=== PATIENT | female | born 1930 | race Caucasian/White ===

== ENCOUNTER 2018-04-13 12:20 | Inpatient (IN) ==
[2018-04-13 14:00] LABS: Baso # (Auto) 0.3 th/mm3 (0.0-0.2); Baso % (Auto) 3.5 % (0.0-2.0); Eos # (Auto) 0.1 th/mm3 (0.0-0.4); Eos % (Auto) 1.4 % (0.0-4.0); Hematocrit 22.7 % (35.0-46.0); Hemoglobin 7.3 gm/dL (11.6-15.3); Lymph # (Auto) 1.4 th/mm3 (1.0-4.8); Lymph % (Auto) 14.4 % (9.0-44.0); Mean Corpuscular HGB Conc 32.4 % (32.0-36.0); Mean Corpuscular Hemoglobin 30.3 pg (27.0-34.0); Mean Corpuscular Volume 93.6 fL (80.0-100.0); Mean Platelet Volume 6.7 fL (7.0-11.0); Mono # (Auto) 0.9 th/mm3 (0.0-0.9); Mono % (Auto) 9.4 % (0.0-8.0); Neut # (Auto) 6.9 th/mm3 (1.8-7.7); Neut % (Auto) 71.3 % (16.0-70.0); Platelet Count 515 th/mm3 (150-450); Red Blood Count 2.42 mil/mm3 (4.00-5.30); Red Cell Distribution Width 17.8 % (11.6-17.2); White Blood Count 9.6 th/mm3 (4.0-11.0)
--- NOTE | 2018-04-13 14:00 | ED ---
HPI General Chief complaint: Recheck/Abnormal Lab/Rx Stated complaint: Neck pain/Home Health Nurse sent needs Vitamin K s Time Seen by Provider: 04/13/18 13:26 Source: patient and RN notes reviewed Mode of arrival: ambulatory History of Present Illness HPI narrative: 87yF presenting with left flank bruising and elevated INR. The patient states that she had a left hip replacement performed about a month ago by Dr. Marrero in [place]; she had no acute complications following her procedure. She says that her home health aide noted bruising to her left flank/ above her iliac crest 4 days ago, and when she had her INR checked today it was found to be 5.4 so she was told to come to the ED. She denies trauma, fever or chills, nausea or vomiting, black/ tarry/ bloody stools, or dysuria. No recent changes in coumadin dose. She takes coumadin for history of A fib. Related Data Home Medications Medication Instructions Recorded Confirmed Lactobacillus acidoph-L.bulgar 1 tab PO DAILY 03/24/18 04/13/18 [Lactinex] ascorbic acid (vitamin C) [Vitamin 1 g PO DAILY 03/24/18 04/13/18 C] atenolol 25 mg PO BID 03/24/18 04/13/18 biotin 1,000 mcg PO DAILY 03/24/18 04/13/18 citalopram 10 mg PO DAILY 03/24/18 04/13/18 coenzyme Q10 200 mg PO DAILY 03/24/18 04/13/18 docusate sodium [DOK] 100 mg PO Q12HR 03/24/18 04/13/18 gabapentin 300 mg PO HS 03/24/18 04/13/18 levothyroxine 88 mcg PO DIRECTED 03/24/18 04/13/18 lisinopril 20 mg PO DAILY 03/24/18 04/13/18 multivitamin with minerals 1 tab PO DAILY 03/24/18 04/13/18 [Multiple Vitamin-Minerals] pravastatin 80 mg PO DAILY 03/24/18 04/13/18 vitamin B complex 1 tab PO DAILY 03/24/18 04/13/18 warfarin 5 mg PO DAILY 03/24/18 04/13/18 zolpidem 5 mg PO DAILY 03/24/18 04/13/18 Previous Rx's Medication Instructions Recorded B-complex with vitamin C [Total 1 tab PO DAILY 30 Days #30 tab 03/30/18 B/C] acidophilus-sporogenes 1 tab PO DAILY 30 Days #30 tab 03/30/18 [Acidophilus Ex Str (L. sporog)] ascorbic acid (vitamin C) [Vitamin 1,000 mg PO DAILY 30 Days #60 tab 03/30/18 C] atenolol 25 mg PO BID 30 Days #60 tab 03/30/18 citalopram 10 mg PO DAILY 30 Days #15 tab 03/30/18 gabapentin [Neurontin] 300 mg PO HS 30 Days #30 cap 03/30/18 levothyroxine [Synthroid] 88 mcg PO MoTuWeThFrSa@0600 30 03/30/18 Days tab lisinopril 10 mg PO DAILY 30 Days #30 tab 03/30/18 ounuvmyg-godi-CO-calcium-mins 1 tab PO DAILY 30 Days #30 tab 03/30/18 [Thera M Plus (ferrous fumarat)] pantoprazole 40 mg PO DAILY 30 Days #30 tab 03/30/18 pravastatin 80 mg PO DAILY 30 Days #30 tab 03/30/18 sennosides-docusate sodium [Senna 1 tab PO BID 30 Days #60 tab 03/30/18 Plus] tramadol [Ultram] 50 mg PO Q8H PRN #21 tab 03/30/18 warfarin [Coumadin] 5 mg PO DAILY@1600 30 Days tab 03/30/18 Allergies Allergy/AdvReac Type Severity Reaction Status Date / Time hydrocodone Allergy Severe Confusion Verified 03/25/18 06:11 nitroglycerin Allergy Severe Dizziness Verified 03/25/18 06:11 oxycodone Allergy Severe confusion Verified 03/25/18 06:11 rosuvastatin Allergy Severe paralysis Verified 03/25/18 06:11 epinephrine AdvReac Severe TACHYCARDIA, Verified 03/25/18 07:08 FACIAL FLUSHING, SIMULATES "HEART ATTACK' Review of Systems ROS: all other systems reviewed are negative Constitutional Denies fever(s) Eyes Denies blurry vision ENT Denies nasal congestion Cardiovascular Denies chest pain Respiratory Denies cough Gastrointestinal Denies nausea Genitourinary Denies dysuria Musculoskeletal Denies back pain Integumentary/Breasts Reports unusual bruising PMFSH History History Provided By: Patient Medical History Medical History Basal cell carcinoma of nose (Acute) Cataract, bilateral (Acute) CAD (coronary artery disease) (Acute) Hypertension (Acute) Surgical History Surgical History S/P lumpectomy, right breast (Acute) History of carpal tunnel release (Acute) Stented coronary artery (Acute) History of nephrectomy (Acute) Hx of tonsillectomy (Acute) History of total right knee replacement (Acute) History of total left knee replacement (Acute) Family History Family History Sister Family history of cancer Father Family history of hypertension Mother Family history of hypertension Social History Social History Substance History: No History of Abuse Second Hand Smoke Exposure: No Smoking Status: Never smoker Tobacco Type: Cigarettes How Often Do You Have a Drink Containing Alcohol: 2 to 3 times a week Hx Recent Travel: No Recent Travel in [facility] within the Last 8 Weeks: No Recent Out of Country Travel within the Last 8 Weeks: No Immunization History Tetanus Immunization: >5 Years Hx Influenza Vaccine This Season: Yes Exam Const General: healthy appearing and no acute distress [facility] Head: normocephalic and atraumatic Face and sinus: normal facial exam Eyes General: appearance normal, both eyes and all related structures Pupils: PERRL Chest Chest: normal inspection of the chest Resp Effort & Inspection: normal respiratory effort Auscultation: no rhonchi and no wheezes Cardio Rate: regular rate Rhythm: abnormal rhythm GI Inspection: non-distended Palpation: soft and nontender Skin Other: Dark blue/ purple ecchymosis to left lower flank just above iliac crest Non-tender Normal ROM of left hip, no tenderness to iliac crest, no midline lumbar tenderness Neuro General: alert, awake, oriented x3 and no focal motor deficits Psych Affect: normal affect Course Consultations Consultation #1: Call placed to Dr. Martinez of [facility] (patient's orthopedist); she has a psoas hematoma and anterior hip collection, INR of 4, and has acutely dropped her hemoglobin from 9.7 to 7.3. Awaiting call back. Time: 15:10 Consultation #2: Case discussed with Dr. Villarreal (converter operator for Dr. Martinez's group), who says the CT findings are expected in the setting of supratherapeutic INR. He does not feel that the patient requires transfer to [facility], and says that aside from reversing the INR, he does not recommend any specific orthopedic intervention. Time: 15:20 Initial Documented Vital Signs Temperature 97.8 F 04/13/18 12:49 Pulse Rate 67 04/13/18 12:49 Respiratory Rate 16 04/13/18 12:49 Blood Pressure 142/71 H 04/13/18 12:49 Pulse Oximetry 97 04/13/18 12:49 Last Documented Vital Signs Temperature 97.8 F 04/13/18 12:49 Pulse Rate 67 04/13/18 12:49 Respiratory Rate 16 04/13/18 12:49 Blood Pressure 142/71 H 04/13/18 12:49 Pulse Oximetry 97 04/13/18 12:49 Medical Decision Making [facility] Narrative Medical decision making narrative: Assessment: 87yF presenting with left flank bruising and elevated INR Plan: Labs, including INR and CBC CT abd/ pelvis to r/o retroperitoneal bleed Addendum: Patient found to have left psoas hematoma and anterior hip effusion/ hematoma, INR of 4, and acute drop in Hg from 2 weeks ago. Case discussed with Dr. Macedo [facility], who would like the patient transferred to [facility] as we do not have orthopedics available here. She will also need intermediate level of care and telemetry monitoring. I informed the patient of these results and plan; she understands and agrees. Differential Diagnosis Differential Diagnosis: Differential diagnosis includes, but is not limited to: supratherapeutic INR, retroperitoneal hematoma, rib fracture, contusion Medical Records Medical records reviewed: Yes I reviewed the patient's medical records. Lab Data Lab results reviewed: Yes I reviewed the patient's lab results. Result diagrams: 04/13/18 13:55 04/13/18 13:55 Lab Results 04/13/18 04/13/18 04/13/18 Range/Units 13:55 13:55 13:55 CBC w Diff Auto diff final WBC 9.6 (4.0-11.0) th/mm3 RBC 2.42 L (4.00-5.30) mil/mm3 Hgb 7.3 L (11.6-15.3) gm/dL Hct 22.7 L (35.0-46.0) % MCV 93.6 (80.0-100.0) fL MCH 30.3 (27.0-34.0) pg MCHC 32.4 (32.0-36.0) % RDW 17.8 H (11.6-17.2) % Plt Count 515 H (150-450) th/mm3 MPV 6.7 L (7.0-11.0) fL Neut % (Auto) 71.3 H (16.0-70.0) % Lymph % (Auto) 14.4 (9.0-44.0) % [place]on % (Auto) 9.4 H (0.0-8.0) % Eos % (Auto) 1.4 (0.0-4.0) % Baso % (Auto) 3.5 H (0.0-2.0) % Neut # (Auto) 6.9 (1.8-7.7) th/mm3 Lymph # (Auto) 1.4 (1.0-4.8) th/mm3 [place]on # (Auto) 0.9 (0.0-0.9) th/mm3 Eos # (Auto) 0.1 (0.0-0.4) th/mm3 Baso # (Auto) 0.3 H (0.0-0.2) th/mm3 WBC Differential . Differential Comment . PT 42.3 H D (9.8-11.6) sec INR 4.2 Ratio Sodium 135 L (136-145) meq/L Potassium 4.3 (3.5-5.1) meq/L Chloride 100 (98-107) meq/L Carbon Dioxide 29.2 (21.0-32.0) meq/L Anion Gap 6 (5-15) meq/L BUN 17 (7-18) mg/dL Creatinine 0.69 (0.50-1.00) mg/dL Estimated GFR 81 L (>89) mL/min Random Glucose 107 H (74-106) mg/dL Calcium 7.8 L (8.5-10.1) mg/dL Total Bilirubin 0.6 (0.2-1.0) mg/dL AST 33 (15-37) U/L ALT 36 (10-53) U/L Alkaline Phosphatase 193 H (45-117) U/L Total Protein 6.2 L (6.4-8.2) g/dL Albumin 2.6 L (3.4-5.0) g/dL Imaging Data Radiologist's impression: Abdomen/Pelvis CT 04/13/18 13:34 CONCLUSION: 1. Left psoas enlargement characteristic of a muscular hematoma 2. Large mixed density fluid collection anterior to a recently placed left hip prosthesis. Hematoma versus abscess should be considered. Developing dystrophic calcification suggests that this may be a chronic process. 3. New small left pleural effusion. 4. Uncomplicated diverticulosis 5. 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 Discharge Plan Physicians Team ED Provider: Maria E Sims Primary Care Provider: Norman Villareal Rxs /Orders / Referrals /Forms Prescriptions: No Action atenolol 25 mg Tablet 25 mg PO BID RF: 0 biotin 1,000 mcg Tablet,Chewable 1,000 mcg PO DAILY RF: 0 citalopram 10 mg Tablet 10 mg PO DAILY RF: 0 coenzyme Q10 200 mg Capsule 200 mg PO DAILY RF: 0 levothyroxine 88 mcg Tablet 88 mcg PO DIRECTED RF: 0 gabapentin 300 mg Capsule 300 mg PO HS RF: 0 lisinopril 20 mg Tablet 20 mg PO DAILY RF: 0 multivitamin with minerals [Multiple Vitamin-Minerals] Tablet 1 tab PO DAILY RF: 0 docusate sodium [DOK] 100 mg Capsule 100 mg PO Q12HR RF: 0 vitamin B complex Tablet 1 tab PO DAILY RF: 0 ascorbic acid (vitamin C) [Vitamin C] 500 mg Tablet 1 g PO DAILY RF: 0 warfarin 5 mg Tablet 5 mg PO DAILY RF: 0 zolpidem 5 mg Tablet 5 mg PO DAILY RF: 0 pravastatin 80 mg Tablet 80 mg PO DAILY RF: 0 Lactobacillus acidoph-L.bulgar [Lactinex] 1 million cell Tablet,Chewable 1 tab PO DAILY RF: 0 sennosides-docusate sodium [Senna Plus] 8.6-50 mg Tablet 1 tab PO BID 30 Days Qty: 60 RF: 0 atenolol 25 mg Tablet 25 mg PO BID 30 Days Qty: 60 RF: 0 levothyroxine [Synthroid] 88 mcg Tablet 88 mcg PO MoTuWeThFrSa@0600 30 Days RF: 0 citalopram 20 mg Tablet 10 mg PO DAILY 30 Days Qty: 15 RF: 0 pravastatin 80 mg Tablet 80 mg PO DAILY 30 Days Qty: 30 RF: 0 ascorbic acid (vitamin C) [Vitamin C] 500 mg Tablet 1,000 mg PO DAILY 30 Days Qty: 60 RF: 0 pantoprazole 40 mg Tablet,Delayed Release (Dr/Ec) 40 mg PO DAILY 30 Days Qty: 30 RF: 0 lisinopril 10 mg Tablet 10 mg PO DAILY 30 Days Qty: 30 RF: 0 warfarin [Coumadin] 5 mg Tablet 5 mg PO DAILY@1600 30 Days RF: 0 gabapentin [Neurontin] 300 mg Capsule 300 mg PO HS 30 Days Qty: 30 RF: 0 B-complex with vitamin C [Total B/C] Tablet 1 tab PO DAILY 30 Days Qty: 30 RF: 0 acidophilus-sporogenes [Acidophilus Ex Str (L. sporog)] 35 million- 25 million cell Tablet 1 tab PO DAILY 30 Days Qty: 30 RF: 0 yuueylfs-gzfh-DT-calcium-mins [Thera M Plus (ferrous fumarat)] 9 mg iron-400 mcg Tablet 1 tab PO DAILY 30 Days Qty: 30 RF: 0 tramadol [Ultram] 50 mg Tablet 50 mg PO Q8H PRN (Reason: Pain Scale 5-10) Qty: 21 RF: 0 Status ED Status: With Doctor
[2018-04-13 14:13] LABS: Chloride 100 meq/L (98-107); Potassium 4.3 meq/L (3.5-5.1); Sodium 135 meq/L (136-145)
[2018-04-13 14:16] LABS: Calcium 7.8 mg/dL (8.5-10.1)
[2018-04-13 14:17] LABS: Albumin 2.6 g/dL (3.4-5.0); Anion Gap 6 meq/L (5-15); Blood Urea Nitrogen 17 mg/dL (7-18); Carbon Dioxide 29.2 meq/L (21.0-32.0); Glucose,Random 107 mg/dL (74-106)
[2018-04-13 14:20] LABS: Alanine Aminotransferase 36 U/L (10-53); Aspartate Aminotransferase 33 U/L (15-37); Glomerular Filtration Rate 81 mL/min (>89)
[2018-04-13 14:21] LABS: INR 4.2 Ratio; Prothrombin Time 42.3 sec (9.8-11.6)
[2018-04-13 14:22] LABS: Total Protein 6.2 g/dL (6.4-8.2)
[2018-04-13 14:23] LABS: Alkaline Phosphatase 193 U/L (45-117)
[2018-04-13] MEDS ORDERED: Phytonadione Inj 10 MG/ML Vial SQ ONE (14:51)
--- NOTE | 2018-04-13 14:54 | CT ---
EXAM DATE: 04/13/2018 2:43 PM EDT AGE/SEX: 87 years / Female INDICATIONS: Left flank pain and hematoma. Elevated INR. Evaluate for retroperitoneal bleed. CLINICAL DATA: This is the patient's initial encounter. Patient reports that signs and symptoms have been present for 1 day and indicates a pain score of 2/10. MEDICAL/SURGICAL HISTORY: Cardiovascular disease. Hypertension. 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 Coronary artery stent. ORAL CONTRAST: No oral contrast ingested. RADIATION DOSE: 5.79 CTDI (mGy) COMPARISON: POI, CT ABDOMEN AND PELVIS W/ CONTRAST, 01/03/2018. . TECHNIQUE: Multiple contiguous axial images were obtained through the abdomen and pelvis following b olus infusion of 50 ml Visipaque 320 (iodixanol) nonionic water-soluble contrast as a single exam d ose. No oral contrast ingested. Using automated exposure control and adjustment of the mA and/or kV according to patient size, radiation dose was kept as low as reasonably achievable to obtain optimal diagnostic quality images. DICOM format image data is available electronically for review and compar marbin. FINDINGS: Lower Lungs: A small left pleural effusion has developed. Lung bases are otherwise clear Liver: The liver has a homogeneous density without space-occupying lesion. There is no dilation of th e biliary tree. Postcholecystectomy clips are noted. Spleen: Homogeneous density without enlargement. Pancreas: Unremarkable without mass or calcification. Kidneys: Absence of the right kidney is noted. Left kidney is large but otherwise unremarkable. Ther e is no evidence of hydronephrosis or renal masses. Adrenal Glands: Unremarkable. Aorta: Moderate calcific atherosclerotic disease is seen in the aortoiliac vessels. Bowel/Mesentery: Numerous diverticula are seen throughout the descending and sigmoid colon. There ar e no active inflammatory changes. There are no abnormal fluid collections or evidence of free air. Abdominal Wall: Intact. Retroperitoneum: Asymmetric generalized enlargement of the left psoas muscle is identified. Mild hyp erdensity in the muscle characteristic of a muscular hematoma. Bladder: Contours are smooth. Reproductive Organs: No abnormal masses or calcifications seen. Inguinal: The inguinal region is unremarkable without evidence of adenopathy. Bony Structures: A large mixed density cystic appearing collection is identified anteriorly in the p roximal left thigh. It measures 8.2 x 8.8 cm in size. Patient has undergone a recent left hip replace ment. There is dystrophic calcification surrounding the prosthesis. Severe degenerative disc disease with asymmetric disc space narrowing, endplate sclerosis and margina l spondylosis is noted along the lumbar spine. Scoliotic deformity is noted. CONCLUSION: 1. Left psoas enlargement characteristic of a muscular hematoma 2. Large mixed density fluid collection anterior to a recently placed left hip prosthesis. Hematoma versus abscess should be considered. Developing dystrophic calcification suggests that this may be a chronic process. 3. New small left pleural effusion. 4. Uncomplicated diverticulosis 5. 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 Electronically signed by: Mikie Gonzalez MD 04/13/2018 2:53 PM EDT
[2018-04-13] MEDS ORDERED: Acetaminophen 325 MG Tablet PO ONE (15:02)
[2018-04-13] MEDS ORDERED: Bisacodyl 10 MG Supp RECTAL PRN (17:32)
[2018-04-13] MEDS ORDERED: Acetaminophen 325 MG Tablet PO PRN (17:32)
[2018-04-13] MEDS ORDERED: Temazepam 15 MG Capsule PO PRN (21:00)
[2018-04-13] MEDS ORDERED: Senna/Docusate Sodium 8.6/50 MG Tablet PO SCH (21:00)
--- NOTE | 2018-04-13 23:43 | P.HPIM ---
History of Present Illness Service: [facility] Primary Care Physician: Norman Villareal MD Chief Complaint: Elevated INR History of Present Illness: Ms. 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 It was 4.2 in the ER and the patient received vitamin K 10 mg subcu in the emergency room and was transferred to [facility] for further management and evaluation under the hospitalist service. The patient is seen in her hospital room. She reports being in good health and progressing well following left hip replacement on 03/19/2018 despite a chronic left hip hematoma that her orthopedic surgeon from [place] is aware of and has been following. She tells me that she saw her surgeon Dr. Marrero on and he felt she was doing well. She denies any chest pain, shortness of breath , fever, chills, nausea, vomiting, or diarrhea. She reports mild left hip pain and mild low back pain relieved with ordered PRN Tylenol. She denies pain at the time of my visit. Inpatient Certification: I certify that the inpatient services were ordered in accordance with Medicare regulations governing the order. This includes certification that hospital inpatient services are reasonable and necessary and in the case of services not specified as inpatient-only under 42 CFR 419.22(n), that they are appropriately provided as inpatient services in accordance to with the 2-midnight benchmark under 43 CFR 412.3(e) Estimated Total Length of Stay (Days): 3 Plans for Post Hospital Care: Home Review of Systems All other systems reviewed negative except as stated in HPI [facility] - History History Provided By: Patient - Medical History Medical History: Medical History (Last Updated 04/14/18 @ 01:01 by GERALDINE Wright) Basal cell carcinoma of nose (Acute) Cataract, bilateral (Acute) CAD (coronary artery disease) (Acute) Hypertension (Acute) Atrial fibrillation - Surgical History Surgical History: Surgical History (Last Reviewed 04/13/18 @ 23:54 by GERALDINE Wright) S/P lumpectomy, right breast (Acute) History of carpal tunnel release (Acute) Stented coronary artery (Acute) History of nephrectomy (Acute) Hx of tonsillectomy (Acute) History of total right knee replacement (Acute) History of total left knee replacement (Acute) - Family History Family History: Family History (Last Reviewed 04/13/18 @ 23:54 by GERALDINE Wright) Sister Family history of cancer Father Family history of hypertension Mother Family history of hypertension - Tobacco History Second Hand Smoke Exposure: No Tobacco Use In Past 30 Days: No Smoking Status: Former smoker Tobacco Type: Cigarettes - Alcohol History How Often Do You Have a Drink Containing Alcohol: Monthly or less - Substance Use History Substance History: No History of Abuse - Travel History History of Recent Travel: No Recent Travel in the [place] Within the Last 8 Weeks: No Recent Travel Out of the Country Within the Last 8 Weeks: No - Immunization History Tetanus Immunization: >5 Years Hx Influenza Vaccine This Season: Yes Medications and Allergies Active Medications: Active Medications Acetaminophen (Tylenol) 650 mg PO Q4H PRN PRN Reason: Temp > 100.4/pain Last Admin: 04/13/18 23:00 Dose: 650 mg Al Hydroxide/Mg Hydroxide (Milk Of Magnesia Liq) 30 ml PO Q12H PRN PRN Reason: Mild Constipation Bisacodyl (Dulcolax Supp) 10 mg RECTAL DAILY PRN PRN Reason: SEVERE CONSITIPATION Lactulose (Lactulose Liq) 30 ml PO DAILY PRN PRN Reason: SEVERE CONSITIPATION Metoclopramide HCl (Reglan Inj) 5 mg IV.PUSH Q6HR PRN; Protocol PRN Reason: NAUSEA OR VOMITING Senna/Docusate Sodium (Susanne-Colace) 1 tab PO BID ESTER Sennosides (Senokot) 17.2 mg PO Q12H PRN PRN Reason: Moderate Constipation Temazepam (Restoril) 15 mg PO HS PRN PRN Reason: INSOMNIA Allergies Allergy/AdvReac Type Severity Reaction Status Date / Time hydrocodone Allergy Severe Confusion Verified 03/25/18 06:11 nitroglycerin Allergy Severe Dizziness Verified 03/25/18 06:11 oxycodone Allergy Severe confusion Verified 03/25/18 06:11 rosuvastatin Allergy Severe paralysis Verified 03/25/18 06:11 epinephrine AdvReac Severe TACHYCARDIA, Verified 03/25/18 07:08 FACIAL FLUSHING, SIMULATES "HEART ATTACK' Home Medications Medication Instructions Recorded Confirmed Type Lactobacillus acidoph-L.bulgar 1 tab PO DAILY 03/24/18 04/13/18 History [Lactinex] atenolol 25 mg PO BID 03/24/18 04/13/18 History biotin 1,000 mcg PO DAILY 03/24/18 04/13/18 History citalopram 10 mg PO DAILY 03/24/18 04/13/18 History coenzyme Q10 200 mg PO DAILY 03/24/18 04/13/18 History multivitamin with minerals 1 tab PO DAILY 03/24/18 04/13/18 History [Multiple Vitamin-Minerals] vitamin B complex 1 tab PO DAILY 03/24/18 04/13/18 History zolpidem 5 mg PO DAILY 03/24/18 04/13/18 History Exam Vital signs: Vital Signs 04/13/18 12:49 04/13/18 19:15 04/13/18 21:55 Temperature 97.8 F Pulse Rate 67 78 78 Respiratory Rate 16 16 16 Blood Pressure 142/71 H 138/68 145/60 H Pulse Oximetry 97 95 95 Intake & Output 04/13/18 04/13/18 04/14/18 06:59 18:59 06:59 Weight 53 kg 56 kg Other: Weight On Admission 56 kg - Constitutional no acute distress, cooperative - Routine HEENT Exam Head: Present: normocephalic, atraumatic ENT: Present: mucous membranes moist - Routine Respiratory Exam Present: CTA bilaterally. Absent: rhonchi, wheezes, crackles - Routine Cardiovascular Exam Present: irregularly irregular. Absent: murmur, gallop, rubs - Routine Abdominal Exam Present: soft, normoactive bowel sounds. Absent: tenderness, distended - Routine Extremities Exam Present: pulses intact. Absent: edema, calf tenderness - Routine Skin Exam Present: pallor, warm Comments: Left flank with bruising and golf ball sized area hematoma noted and palpated Left hip postoperative incision healing with wound edges well approximated and large fluid collection noted - patient states this is stable - Routine Neurological Exam Present: alert, oriented X3 Results - Labs CBC & Chem 7: 04/13/18 13:55 04/13/18 13:55 Labs: Short CBC 04/13/18 Range/Units 13:55 WBC 9.6 (4.0-11.0) th/mm3 Hgb 7.3 L (11.6-15.3) gm/dL Hct 22.7 L (35.0-46.0) % Plt Count 515 H (150-450) th/mm3 BMP 04/13/18 13:55 Sodium 135 L Potassium 4.3 Chloride 100 Carbon Dioxide 29.2 BUN 17 Creatinine 0.69 Calcium 7.8 L Liver Function 04/13/18 Range/Units 13:55 Total Bilirubin 0.6 (0.2-1.0) mg/dL AST 33 (15-37) U/L ALT 36 (10-53) U/L Alkaline Phosphatase 193 H (45-117) U/L Albumin 2.6 L (3.4-5.0) g/dL - Imaging Impressions Abdomen/Pelvis CT 04/13/18 13:34 CONCLUSION: 1. Left psoas enlargement characteristic of a muscular hematoma 2. Large mixed density fluid collection anterior to a recently placed left hip prosthesis. Hematoma versus abscess should be considered. Developing dystrophic calcification suggests that this may be a chronic process. 3. New small left pleural effusion. 4. Uncomplicated diverticulosis 5. 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 Caprini VTE Risk Assessment Caprini VTE Risk Assessment: Moderate/High Risk (score >= 2) Caprini Risk Assessment Model: Point Value = 1 Point Value = 2 Point Value = 3 Point Value = 5 Age 41-60 Minor surgery BMI > 25 kg/m2 Swollen legs Varicose veins or History of unexplained or recurrent spontaneous Oral contraceptives or hormone replacement Sepsis (< 1 month) Serious lung disease, including pneumonia (< 1 month) Abnormal pulmonary function Acute myocardial infarction Congestive heart failure (< 1 month) History of inflammatory bowel disease Medical patient at bed rest Age 61-74 Arthroscopic surgery Major open surgery (> 45 min) Laparoscopic surgery (> 45 min) Malignancy Confined to bed (> 72 hours) Immobilizing plaster cast Central venous access Age >= 75 History of VTE Family history of VTE Factor V Leiden Prothrombin [id number] Lupus anticoagulant Anticardiolipin antibodies Elevated serum homocysteine Heparin-induced thrombocytopenia Other congenital or acquired thrombophilia Stroke (< 1 month) Elective arthroplasty Hip, pelvis, or leg fracture Acute spinal cord injury (< 1 month) Prophylaxis Regimen: Total Risk Factor Score Risk Level Prophylaxis Regimen 0-1 Low Early ambulation 2 Moderate Order ONE of the following: *Sequential Compression Device (SCD) *Heparin 5000 units SQ BID 3-4 Higher Order ONE of the following medications: *Heparin 5000 units SQ TID *Enoxaparin/Lovenox 40 mg SQ daily (WT < 150 kg, CrCl > 30 mL/min) *Enoxaparin/Lovenox 30 mg SQ daily (WT < 150 kg, CrCl > 10-29 mL/min) *Enoxaparin/Lovenox 30 mg SQ BID (WT < 150 kg, CrCl > 30 mL/min) AND/OR *Sequential Compression Device (SCD) 5 or more Highest Order ONE of the following medications: *Heparin 5000 units SQ TID (Preferred with Epidurals) *Enoxaparin/Lovenox 40 mg SQ daily (WT < 150 kg, CrCl > 30 mL/min) *Enoxaparin/Lovenox 30 mg SQ daily (WT < 150 kg, CrCl > 10-29 mL/min) *Enoxaparin/Lovenox 30 mg SQ BID (WT < 150 kg, CrCl > 30 mL/min) AND *Sequential Compression Device (SCD) Assessment and Plan - Plan Ms. 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 It was 4.2 in the ER and the patient received vitamin K 10 mg subcu in the emergency room and was transferred to [facility] for further management and evaluation under the hospitalist service. Left psoas muscle hematoma - Abd/pelvis CT showed left psoas muscle hematoma - consult general surgery - appreciate assistance Supratherapeutic INR - INR 4.2, will repeat in a.m. and follow - Hold Coumadin - Status post vitamin K 10 mg subcu Left hip hematoma status post left hip replacement 03/19/2018 - Patient was seen by Dr. Marrero her orthopedic surgeon in [place] -states this is chronic and not concerning to her orthopedic surgeon -The ER doctor's notes indicate that the left hip fluid collection was discussed with him and he did not feel the need for the patient to be transferred to [place] as there was no need for surgical intervention Anemia - H&H was 7.3 and 22.7 - We will monitor and transfuse if indicated DVT prophylaxis - Supratherapeutic INR - chemoprophylaxis contraindicated . Discussed Condition With: Dr. Rudolph, RN, and patient H&P: Quality - VTE Deep Vein Thrombosis/Pulmonary Embolism Present on Admission: No
[2018-04-14] MEDS ORDERED: Gabapentin 300 MG Capsule PO ONE (00:31)
[2018-04-14] MEDS ORDERED: Zolpidem Tartrate 5 MG Tablet PO ONE (00:31)
[2018-04-14] MEDS ORDERED: Atenolol 25 MG Tablet PO ONE (00:45)
[2018-04-14] MEDS ORDERED: Zolpidem Tartrate 5 MG Tablet PO PRN (01:10)
[2018-04-14] MEDS ORDERED: Acetaminophen 325 MG Tablet PO PRN (01:34)
[2018-04-14 05:20] LABS: Baso % (Auto) 0.2 % (0.0-2.0); Eos % (Auto) 0.1 % (0.0-4.0); Lymph # (Auto) 1.2 th/mm3 (1.0-4.8); Lymph % (Auto) 13.9 % (9.0-44.0); Mean Corpuscular HGB Conc 33.6 % (32.0-36.0); Mean Corpuscular Hemoglobin 31.1 pg (27.0-34.0); Mean Corpuscular Volume 92.5 fL (80.0-100.0); Mean Platelet Volume 6.6 fL (7.0-11.0); Mono % (Auto) 11.4 % (0.0-8.0); Neut # (Auto) 6.5 th/mm3 (1.8-7.7); Neut % (Auto) 74.4 % (16.0-70.0); Platelet Count 382 th/mm3 (150-450); Red Blood Count 2.08 mil/mm3 (4.00-5.30); Red Cell Distribution Width 17.6 % (11.6-17.2); White Blood Count 8.7 th/mm3 (4.0-11.0)
[2018-04-14 05:27] LABS: INR 2.2 Ratio; Prothrombin Time 22.2 sec (9.8-11.6)
[2018-04-14 05:30] LABS: Calcium 7.7 mg/dL (8.5-10.1)
[2018-04-14 05:36] LABS: Hematocrit 19.3 % (35.0-46.0); Hemoglobin 6.5 gm/dL (11.6-15.3)
[2018-04-14] MEDS ORDERED: Sodium Chlor 0.9% Inj 250 ML IV.SIG SCH (06:00)
[2018-04-14] MEDS ORDERED: Levothyroxine 88 MCG Tablet PO SCH (06:00)
[2018-04-14 06:15] LABS: Platelet Estimate Normal (Normal); Platelet Morphology Normal (Normal)
[2018-04-14] MEDS: Senna/Docusate Sodium 8.6/50 MG Tablet PO SCH ×2 (08:14→21:51)
[2018-04-14] MEDS: Lisinopril 10 MG Tablet PO SCH (08:14)
[2018-04-14] MEDS: Ascorbic Acid 500 MG Tablet PO SCH (08:14)
[2018-04-14] MEDS: Lactobacillus Acidophilus/L. Spores Tablet PO SCH (08:14)
[2018-04-14] MEDS: Citalopram 20 MG Tablet PO SCH (08:15)
[2018-04-14] MEDS: Atenolol 25 MG Tablet PO SCH ×2 (08:15→20:28)
[2018-04-14] MEDS ORDERED: COENZYME Q10 200 MG PO SCH (09:00)
--- NOTE | 2018-04-14 09:52 | P.PNIM ---
Subjective Interval history: Patient says she is feeling alright. Denies any chest pain shortness of breath. Denies nausea vomiting. She denies any back pain. Physical Exam Vital signs: Vital Signs 04/13/18 12:49 04/13/18 19:15 04/13/18 21:55 Temperature 97.8 F Pulse Rate 67 78 78 Respiratory Rate 16 16 16 Blood Pressure 142/71 H 138/68 145/60 H Pulse Oximetry 97 95 95 04/13/18 23:00 04/13/18 23:30 04/14/18 00:00 Temperature 98.5 F Pulse Rate 82 80 Respiratory Rate 16 16 Blood Pressure 152/70 H Pulse Oximetry 94 L 04/14/18 01:00 04/14/18 02:00 04/14/18 03:00 Temperature Pulse Rate 72 78 70 Respiratory Rate Blood Pressure Pulse Oximetry 04/14/18 04:00 04/14/18 05:00 04/14/18 06:00 Temperature 98.7 F Pulse Rate 82 70 68 Respiratory Rate 16 Blood Pressure 158/69 H Pulse Oximetry 98 04/14/18 07:39 04/14/18 07:51 Temperature 98.1 F 98 F Pulse Rate 72 72 Respiratory Rate 16 16 Blood Pressure 161/73 H 163/73 H Pulse Oximetry 97 94 L Intake & Output 04/13/18 04/14/18 04/14/18 18:59 06:59 18:59 Intake Total 240 / 240 0 / 0 Balance 240 / 240 0 / 0 Weight 53 kg 57.2 kg Intake: Oral 240 / 240 Intake (Blood Product) Amt 0 / 0 Rbc As-3 Leukoreduced Unit 0 / 0 [id number] Other: # Voids 2 # Urine Diapers 2 Weight On Admission 56 kg Narrative: GENERAL: Patient lying in bed. Appears comfortable. SKIN: Warm and dry. Patient has left flank ecchymosis. This is nontender. HEAD: Normocephalic. EYES: No scleral icterus. No injection or drainage. NECK: Supple, trachea midline. No JVD or lymphadenopathy. CARDIOVASCULAR: Regular rate and rhythm without murmurs, gallops, or rubs. RESPIRATORY: Breath sounds equal bilaterally. No accessory muscle use. GASTROINTESTINAL: Abdomen soft, non-tender, nondistended. MUSCULOSKELETAL: No cyanosis, or edema. Patient has left hip incision which appears to be healing. Subcutaneous collection consistent with hematoma which is nontender BACK: Nontender without obvious deformity. No CVA tenderness. Results - Labs CBC & Chem 7: 04/14/18 04:50 04/14/18 04:50 Laboratory Results - last 24 hr 04/13/18 04/13/18 04/13/18 13:55 13:55 13:55 CBC w Diff Auto diff final WBC 9.6 RBC 2.42 L Hgb 7.3 L Hct 22.7 L MCV 93.6 MCH 30.3 MCHC 32.4 RDW 17.8 H Plt Count 515 H MPV 6.7 L Prelim Diff (Auto) Neut % (Auto) 71.3 H Lymph % (Auto) 14.4 [place] % (Auto) 9.4 H Eos % (Auto) 1.4 Baso % (Auto) 3.5 H Neut # (Auto) 6.9 Lymph # (Auto) 1.4 [place] # (Auto) 0.9 Eos # (Auto) 0.1 Baso # (Auto) 0.3 H WBC Differential . Diff Scan Differential Comment . Platelet Estimate Platelet Morphology Basophilic Stippling PT 42.3 H D INR 4.2 Sodium 135 L Potassium 4.3 Chloride 100 Carbon Dioxide 29.2 Anion Gap 6 BUN 17 Creatinine 0.69 Estimated GFR 81 L Random Glucose 107 H Calcium 7.8 L Total Bilirubin 0.6 AST 33 ALT 36 Alkaline Phosphatase 193 H Total Protein 6.2 L Albumin 2.6 L Blood Type Antibody Screen MTS Gel Crossmatch 04/13/18 04/14/18 04/14/18 15:55 04:50 04:50 CBC w Diff WBC 8.7 RBC 2.08 L Hgb 6.5 L* Hct 19.3 L* MCV 92.5 MCH 31.1 MCHC 33.6 RDW 17.6 H Plt Count 382 MPV 6.6 L Prelim Diff (Auto) Slide review pending Neut % (Auto) 74.4 H Lymph % (Auto) 13.9 [place] % (Auto) 11.4 H Eos % (Auto) 0.1 Baso % (Auto) 0.2 Neut # (Auto) 6.5 Lymph # (Auto) 1.2 [place] # (Auto) 1.0 H Eos # (Auto) 0.0 Baso # (Auto) 0.0 WBC Differential . Diff Scan Auto diff confirmed Differential Comment . Platelet Estimate Normal Platelet Morphology Normal Basophilic Stippling Faint H PT 22.2 H D INR 2.2 Sodium Potassium Chloride Carbon Dioxide Anion Gap BUN Creatinine Estimated GFR Random Glucose Calcium Total Bilirubin AST ALT Alkaline Phosphatase Total Protein Albumin Blood Type O Negative Antibody Screen Negative MTS Gel Crossmatch 04/14/18 04/14/18 04:50 05:58 CBC w Diff WBC RBC Hgb Hct MCV MCH MCHC RDW Plt Count MPV Prelim Diff (Auto) Neut % (Auto) Lymph % (Auto) [place] % (Auto) Eos % (Auto) Baso % (Auto) Neut # (Auto) Lymph # (Auto) [place] # (Auto) Eos # (Auto) Baso # (Auto) WBC Differential Diff Scan Differential Comment Platelet Estimate Platelet Morphology Basophilic Stippling PT INR Sodium 138 Potassium 4.0 Chloride 102 Carbon Dioxide 29.0 Anion Gap 7 BUN 14 Creatinine 0.75 Estimated GFR 73 L Random Glucose 95 Calcium 7.7 L Total Bilirubin AST ALT Alkaline Phosphatase Total Protein Albumin Blood Type Antibody Screen MTS Gel Crossmatch See Detail - Imaging Impressions Abdomen/Pelvis CT 04/13/18 13:34 CONCLUSION: 1. Left psoas enlargement characteristic of a muscular hematoma 2. Large mixed density fluid collection anterior to a recently placed left hip prosthesis. Hematoma versus abscess should be considered. Developing dystrophic calcification suggests that this may be a chronic process. 3. New small left pleural effusion. 4. Uncomplicated diverticulosis 5. 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 Assessment and Plan - Plan Ms. 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 It was 4.2 in the ER and the patient received vitamin K 10 mg subcu in the emergency room and was transferred to [facility] for further management and evaluation under the hospitalist service. //Left psoas muscle hematoma - Abd/pelvis CT showed left psoas muscle hematoma - consult general surgery - appreciate assistance = Follow-up general surgery recommendations. Appreciate assistance. //Supratherapeutic INR - INR 4.2, will repeat in a.m. and follow - Hold Coumadin - Status post vitamin K 10 mg subcu = INR 2.2. Continue to hold. //Atrial fibrillation. //Hypertension Continue atenolol. Hold anticoagulation for now. 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 Marrero her orthopedic surgeon in [place] -states this is chronic and not concerning to her orthopedic surgeon -The ER doctor's notes indicate that the left hip fluid collection was discussed with him and he did not feel the need for the patient to be transferred to [place] as there was no need for surgical intervention //Anemia - H&H was 7.3 and 22.7 - We will monitor and transfuse if indicated = 04/14. Hemoglobin 6.5. Will transfuse 2 units of PRBCs and continue to monitor hemoglobin every 8 hours. //DVT prophylaxis - Supratherapeutic INR - chemoprophylaxis contraindicated Discharge Planning: Pending stability of hemoglobin, surgery clearance.
--- NOTE | 2018-04-14 11:42 | MB ---
cc: García Weiss MD DATE: 04/14/2018 REASON FOR CONSULTATION: Hematoma of the soleus muscle and of the thigh. HISTORY OF PRESENT ILLNESS: The patient is an 87-year-old female with a history of stent placement and a recent left hip replacement, who was admitted with an INR of 5 in the emergency room. Coumadin has been held, but she was noted on CT scan to have an approximately 8.5 x 8.2 cm fluid collection in the inferior portion of an incision on the left hip as well as a psoas muscle swelling consistent with a hematoma. She has remained hemodynamically stable throughout her stay. She was seen by Dr. Marrero, who is orthopedic surgeon in [place], on and was told that everything was stable and did not require any intervention. She is not complaining of any pain anywhere at the time. She is receiving blood transfusion at the time of my exam. REVIEW OF SYSTEMS: Negative except as indicated in history of present illness. PAST MEDICAL HISTORY: Includes bilateral cataract extraction, coronary artery disease with stenting, hypertension, atrial fibrillation, basal cell carcinoma of the nose. PAST SURGICAL HISTORY: Includes a right breast lumpectomy, carpal tunnel release, coronary artery stenting nephrectomy in the past, tonsillectomy in the past, total right knee, total left knee, and left hip replacement. SOCIAL HISTORY: The patient is a former smoker. She drinks alcohol seldom. No history of IV drug use. PHYSICAL EXAMINATION: GENERAL: Reveals a female, in no acute distress. VITAL SIGNS: BP 163/73, pulse 103, respirations 16, temperature 98.0, pulse 72. CHEST: Clear to auscultation. CARDIOVASCULAR: Reveals a regular rate at this time. ABDOMEN: Soft and nontender. Specifically, there is no left lower quadrant or pelvic tenderness to palpation. EXTREMITIES: There is a healing left scar on the left hip extending down toward the thigh. There is a fairly sizable, but soft, fluctuant area at the inferior portion of the incision. There is no drainage from the incision. This is nontender and the patient states this has not changed in size. Pulses are present. NEUROLOGIC: Nonfocal. LABORATORY VALUES: Demonstrate WBCs of 8.7, hemoglobin is 6.5, hematocrit 19.3, which is down from 7.3 and 22.7 yesterday afternoon. INR is 2.2 currently, BUN and creatinine are 14 and 0.75 with a potassium of 4.0. CT scan performed 04/13/2018 at 1334 hours demonstrates a left psoas enlargement, characteristic of a muscular hematoma, and a large mixed density fluid collection near recently placed left hip prosthesis. This is 8.2 x 8.8 cm in size. ASSESSMENT: 1. Psoas hematoma, not actively bleeding with no extravasation. 2. Fluid collection left thigh, this does not appear to be blood, but is more likely an old seroma. PLAN: We will observe nonoperatively. Would continue to hold Coumadin. Agree with transfusion. It is acceptable for the patient to eat at this time as I do not anticipate any surgical procedure. We will see the patient again tomorrow; if her fluid collection in the thigh has increased substantially, aspiration may be in order for this. Thank you for asking us to see this individual. We will follow her with you. MD CIARA Garsia/angella , 11:22 AM , 11:32 AM
[2018-04-14] MEDS ORDERED: Gabapentin 300 MG Capsule PO SCH (21:00)
[2018-04-15 05:08] LABS: Baso % (Auto) 0.3 % (0.0-2.0); Eos # (Auto) 0.1 th/mm3 (0.0-0.4); Eos % (Auto) 0.7 % (0.0-4.0); Hemoglobin 10.1 gm/dL (11.6-15.3); Lymph # (Auto) 1.3 th/mm3 (1.0-4.8); Lymph % (Auto) 14.6 % (9.0-44.0); Mean Corpuscular HGB Conc 33.7 % (32.0-36.0); Mean Corpuscular Hemoglobin 30.2 pg (27.0-34.0); Mean Corpuscular Volume 89.6 fL (80.0-100.0); Mean Platelet Volume 6.6 fL (7.0-11.0); Mono # (Auto) 1.1 th/mm3 (0.0-0.9); Mono % (Auto) 12.8 % (0.0-8.0); Neut # (Auto) 6.2 th/mm3 (1.8-7.7); Neut % (Auto) 71.6 % (16.0-70.0); Platelet Count 407 th/mm3 (150-450); Red Blood Count 3.35 mil/mm3 (4.00-5.30); Red Cell Distribution Width 18.4 % (11.6-17.2); White Blood Count 8.7 th/mm3 (4.0-11.0)
[2018-04-15 05:39] LABS: Albumin 2.4 g/dL (3.4-5.0); Anion Gap 7 meq/L (5-15); Blood Urea Nitrogen 13 mg/dL (7-18); Calcium 7.8 mg/dL (8.5-10.1); Carbon Dioxide 31.3 meq/L (21.0-32.0); Chloride 101 meq/L (98-107); Glomerular Filtration Rate Greater Than 89 mL/min (>89); Glucose,Random 84 mg/dL (74-106); Phosphorus 2.9 mg/dL (2.5-4.9); Potassium 3.4 meq/L (3.5-5.1); Sodium 139 meq/L (136-145)
[2018-04-15] MEDS: Lactobacillus Acidophilus/L. Spores Tablet PO SCH (09:09)
[2018-04-15] MEDS: Citalopram 20 MG Tablet PO SCH (09:10)
[2018-04-15] MEDS: Atenolol 25 MG Tablet PO SCH (09:10)
[2018-04-15] MEDS: Lisinopril 10 MG Tablet PO SCH (09:10)
[2018-04-15] MEDS: Ascorbic Acid 500 MG Tablet PO SCH (09:11)
[2018-04-15] MEDS: Senna/Docusate Sodium 8.6/50 MG Tablet PO SCH (09:11)
--- NOTE | 2018-04-15 10:15 | P.PNIM ---
Subjective Interval history: Patient says she is feeling all right. Denies any pain. Denies any chest pain shortness of breath. Denies nausea vomiting. Says she feels like going home. Physical Exam Vital signs: Vital Signs 04/14/18 10:51 04/14/18 11:00 04/14/18 12:00 Temperature 98.7 F 98.8 F Pulse Rate 82 68 74 Respiratory Rate 16 18 Blood Pressure 167/80 H 161/72 H Pulse Oximetry 96 04/14/18 13:00 04/14/18 14:00 04/14/18 15:00 Temperature Pulse Rate 86 74 68 Respiratory Rate Blood Pressure Pulse Oximetry 04/14/18 16:00 04/14/18 17:00 04/14/18 18:00 Temperature 98.7 F Pulse Rate 82 78 77 Respiratory Rate 18 Blood Pressure 147/70 H Pulse Oximetry 98 04/14/18 19:00 04/14/18 20:00 04/14/18 21:00 Temperature 99.6 F Pulse Rate 86 89 75 Respiratory Rate 18 Blood Pressure 178/87 H Pulse Oximetry 96 04/14/18 22:00 04/14/18 23:00 04/14/18 23:30 Temperature 97.4 F L Pulse Rate 71 69 69 Respiratory Rate 16 Blood Pressure 157/78 H Pulse Oximetry 93 L 04/15/18 00:00 04/15/18 01:00 04/15/18 02:00 Temperature Pulse Rate 64 68 64 Respiratory Rate Blood Pressure Pulse Oximetry 04/15/18 03:00 04/15/18 04:00 04/15/18 04:16 Temperature 98.7 F Pulse Rate 70 72 Respiratory Rate 16 Blood Pressure 184/80 H 124/70 Pulse Oximetry 94 L 04/15/18 05:00 04/15/18 06:00 04/15/18 06:17 Temperature Pulse Rate 63 73 Respiratory Rate Blood Pressure 163/87 H Pulse Oximetry Intake & Output 04/14/18 04/15/18 04/15/18 18:59 06:59 18:59 Intake Total 1060 / 1060 240 / 240 Output Total 900 / 900 600 / 600 Balance 160 / 160 -360 / -360 Weight 57.6 kg Intake: Oral 660 / 660 240 / 240 Intake (Blood Product) Amt 400 / 400 Rbc As-3 Leukoreduced Unit 0 / 0 [id number] Rbc As-3 Leukoreduced Unit 400 / 400 [id number] Output: Urine 900 / 900 600 / 600 Other: Date of Last Bowel Movement 04/14/18 04/14/18 Narrative: GENERAL: Patient sitting up on edge of bed eating breakfast. Appears comfortable. SKIN: Warm and dry. Patient has left flank ecchymosis. This is nontender. HEAD: Normocephalic. EYES: No scleral icterus. No injection or drainage. NECK: Supple, trachea midline. No JVD or lymphadenopathy. CARDIOVASCULAR: Regular rate and rhythm without murmurs, gallops, or rubs. RESPIRATORY: Breath sounds equal bilaterally. No accessory muscle use. GASTROINTESTINAL: Abdomen soft, non-tender, nondistended. MUSCULOSKELETAL: No cyanosis, or edema. Patient has left hip incision which appears to be healing. Subcutaneous collection consistent with hematoma which is nontender BACK: Nontender without obvious deformity. No CVA tenderness. Results - Labs CBC & Chem 7: 04/15/18 03:24 04/15/18 03:24 Laboratory Results - last 24 hr 04/14/18 04/14/18 04/14/18 04:45 04:50 05:58 WBC 8.7 RBC 2.08 L Hgb 10.3 L D 6.5 L* D Hct 19.3 L* MCV 92.5 MCH 31.1 MCHC 33.6 RDW 17.6 H Plt Count 382 MPV 6.6 L Prelim Diff (Auto) Slide review pending Neut % (Auto) 74.4 H Lymph % (Auto) 13.9 [place] % (Auto) 11.4 H Eos % (Auto) 0.1 Baso % (Auto) 0.2 Neut # (Auto) 6.5 Lymph # (Auto) 1.2 [place] # (Auto) 1.0 H Eos # (Auto) 0.0 Baso # (Auto) 0.0 WBC Differential Diff Scan Auto diff confirmed Differential Comment Platelet Estimate Normal Platelet Morphology Normal Basophilic Stippling Faint H Sodium Potassium Chloride Carbon Dioxide Anion Gap BUN Creatinine Estimated GFR Random Glucose Calcium Phosphorus Albumin MTS Gel Crossmatch See Detail 04/15/18 04/15/18 03:24 03:24 WBC 8.7 RBC 3.35 L Hgb 10.1 L D Hct 30.0 L MCV 89.6 MCH 30.2 MCHC 33.7 RDW 18.4 H Plt Count 407 MPV 6.6 L Prelim Diff (Auto) Neut % (Auto) 71.6 H Lymph % (Auto) 14.6 [place] % (Auto) 12.8 H Eos % (Auto) 0.7 Baso % (Auto) 0.3 Neut # (Auto) 6.2 Lymph # (Auto) 1.3 [place] # (Auto) 1.1 H Eos # (Auto) 0.1 Baso # (Auto) 0.0 WBC Differential . Diff Scan Differential Comment Auto diff final Platelet Estimate Platelet Morphology Basophilic Stippling Sodium 139 Potassium 3.4 L Chloride 101 Carbon Dioxide 31.3 Anion Gap 7 BUN 13 Creatinine 0.62 Estimated GFR Greater than 89 Random Glucose 84 Calcium 7.8 L Phosphorus 2.9 Albumin 2.4 L MTS Gel Crossmatch Assessment and Plan - Plan Ms. Parisi is a sharp 87 year-old female with a history of CAD s/p stent placement (Dr. Constantino double cutter), hypertension, hyperlipidemia, and atrial fibrillation on Coumadin who presented to the [place] emergency room after a home health nurse found her INR elevated at 5. It was 4.2 in the ER and the patient received vitamin K 10 mg subcu in the emergency room and was transferred to [facility] for further management and evaluation under the hospitalist service. //Left psoas muscle hematoma - Abd/pelvis CT showed left psoas muscle hematoma - consult general surgery - appreciate assistance = Follow-up general surgery recommendations. Appreciate assistance. = Appears stable on exam. Pending surgical clearance for discharge. //Supratherapeutic INR - INR 4.2, will repeat in a.m. and follow - Hold Coumadin - Status post vitamin K 10 mg subcu = INR 2.2. Continue to hold. = Continue to hold. Follow-up INR. Hopefully patient can follow-up with primary care and neurology as outpatient to restart warfarin.. //Atrial fibrillation. //Hypertension Continue atenolol. Hold anticoagulation for now. 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 Marrero her orthopedic surgeon in [place] -states this is chronic and not concerning to her orthopedic surgeon -The ER doctor's notes indicate that the left hip fluid collection was discussed with him and he did not feel the need for the patient to be transferred to [place] as there was no need for surgical intervention //Anemia - H&H was 7.3 and 22.7 - We will monitor and transfuse if indicated = 04/14. Hemoglobin 6.5. Will transfuse 2 units of PRBCs and continue to monitor hemoglobin every 8 hours. = 04/15. Hemoglobin 10. Marketed improvement. Hold off on warfarin. Follow- up with orthopedics, neurology. //DVT prophylaxis - Supratherapeutic INR - chemoprophylaxis contraindicated Discharge Planning: Pending surgery clearance.
--- NOTE | 2018-04-15 10:21 | P.DS ---
Date of admission: 04/13/18 15:42 Primary care physician: Norman Villareal MD Brief History from admission: Ms. 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 It was 4.2 in the ER and the patient received vitamin K 10 mg subcu in the emergency room and was transferred to [facility] for further management and evaluation under the hospitalist service. The patient is seen in her hospital room. She reports being in good health and progressing well following left hip replacement on 03/19/2018 despite a chronic left hip hematoma that her orthopedic surgeon from [place] is aware of and has been following. She tells me that she saw her surgeon Dr. Marrero on and he felt she was doing well. She denies any chest pain, shortness of breath , fever, chills, nausea, vomiting, or diarrhea. She reports mild left hip pain and mild low back pain relieved with ordered PRN Tylenol. She denies pain at the time of my visit. DS: Summary Hospital Course: Ms. 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 It was 4.2 in the ER and the patient received vitamin K 10 mg subcu in the emergency room and was transferred to [facility] for further management and evaluation under the hospitalist service. patient found to have left so as hematoma on abdominal CT.Warfarin will be held at this time. Appreciate surgical assistance. No surgery necessary. INR 4.2 on admission. INR returned to normal, nontreatment levels after correction. Hemoglobin down to 6.5 during admission, however improved after 2 units of PRBCs. Hematoma found to be non-expanding. Patient will follow up with primary care, orthopedist as outpatient and hopefully can be restarted on warfarin soon. For problem-based summary from most recent progress note, please see below. //Left psoas muscle hematoma - Abd/pelvis CT showed left psoas muscle hematoma - consult general surgery - appreciate assistance = Follow-up general surgery recommendations. Appreciate assistance. = Appears stable on exam. Pending surgical clearance for discharge. //Supratherapeutic INR - INR 4.2, will repeat in a.m. and follow - Hold Coumadin - Status post vitamin K 10 mg subcu = INR 2.2. Continue to hold. = Continue to hold. Follow-up INR. Hopefully patient can follow-up with primary care and neurology as outpatient to restart warfarin.. //Atrial fibrillation. //Hypertension Continue atenolol. Hold anticoagulation for now. 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 Marrero her orthopedic surgeon in [place] -states this is chronic and not concerning to her orthopedic surgeon -The ER doctor's notes indicate that the left hip fluid collection was discussed with him and he did not feel the need for the patient to be transferred to [place] as there was no need for surgical intervention //Anemia - H&H was 7.3 and 22.7 - We will monitor and transfuse if indicated = 04/14. Hemoglobin 6.5. Will transfuse 2 units of PRBCs and continue to monitor hemoglobin every 8 hours. = 04/15. Hemoglobin 10. Marketed improvement. Hold off on warfarin. Follow- up with orthopedics, neurology. //DVT prophylaxis - Supratherapeutic INR - chemoprophylaxis contraindicated - Time Spent with Patient Total time spent providing and/or coordinating discharge services: Less than 30 minutes - Quality: VTE Deep Vein Thrombosis/Pulmonary Embolism Present on Admission: No Exam Vital signs: Vital Signs 04/14/18 10:51 04/14/18 11:00 04/14/18 12:00 Temperature 98.7 F 98.8 F Pulse Rate 82 68 74 Respiratory Rate 16 18 Blood Pressure 167/80 H 161/72 H Pulse Oximetry 96 04/14/18 13:00 04/14/18 14:00 04/14/18 15:00 Temperature Pulse Rate 86 74 68 Respiratory Rate Blood Pressure Pulse Oximetry 04/14/18 16:00 04/14/18 17:00 04/14/18 18:00 Temperature 98.7 F Pulse Rate 82 78 77 Respiratory Rate 18 Blood Pressure 147/70 H Pulse Oximetry 98 04/14/18 19:00 04/14/18 20:00 04/14/18 21:00 Temperature 99.6 F Pulse Rate 86 89 75 Respiratory Rate 18 Blood Pressure 178/87 H Pulse Oximetry 96 04/14/18 22:00 04/14/18 23:00 04/14/18 23:30 Temperature 97.4 F L Pulse Rate 71 69 69 Respiratory Rate 16 Blood Pressure 157/78 H Pulse Oximetry 93 L 04/15/18 00:00 04/15/18 01:00 04/15/18 02:00 Temperature Pulse Rate 64 68 64 Respiratory Rate Blood Pressure Pulse Oximetry 04/15/18 03:00 04/15/18 04:00 04/15/18 04:16 Temperature 98.7 F Pulse Rate 70 72 Respiratory Rate 16 Blood Pressure 184/80 H 124/70 Pulse Oximetry 94 L 04/15/18 05:00 04/15/18 06:00 04/15/18 06:17 Temperature Pulse Rate 63 73 Respiratory Rate Blood Pressure 163/87 H Pulse Oximetry Intake & Output 04/14/18 04/15/18 04/15/18 18:59 06:59 18:59 Intake Total 1060 / 1060 240 / 240 Output Total 900 / 900 600 / 600 Balance 160 / 160 -360 / -360 Weight 57.6 kg Intake: Oral 660 / 660 240 / 240 Intake (Blood Product) Amt 400 / 400 Rbc As-3 Leukoreduced Unit 0 / 0 [id number] Rbc As-3 Leukoreduced Unit 400 / 400 [id number] Output: Urine 900 / 900 600 / 600 Other: Date of Last Bowel Movement 04/14/18 04/14/18 Results Procedures completed during hospitalization: No invasive procedures. Labs on day of discharge: Labs from last 24 hours 04/15/18 04/15/18 04/14/18 03:24 03:24 05:58 WBC 8.7 RBC 3.35 L Hgb 10.1 L D Hct 30.0 L MCV 89.6 MCH 30.2 MCHC 33.7 RDW 18.4 H Plt Count 407 MPV 6.6 L Prelim Diff (Auto) Neut % (Auto) 71.6 H Lymph % (Auto) 14.6 [place] % (Auto) 12.8 H Eos % (Auto) 0.7 Baso % (Auto) 0.3 Neut # (Auto) 6.2 Lymph # (Auto) 1.3 [place] # (Auto) 1.1 H Eos # (Auto) 0.1 Baso # (Auto) 0.0 WBC Differential . Diff Scan Differential Comment Auto diff final Platelet Estimate Platelet Morphology Basophilic Stippling Sodium 139 Potassium 3.4 L Chloride 101 Carbon Dioxide 31.3 Anion Gap 7 BUN 13 Creatinine 0.62 Estimated GFR Greater than 89 Random Glucose 84 Calcium 7.8 L Phosphorus 2.9 Albumin 2.4 L MTS Gel Crossmatch See Detail 04/14/18 04/14/18 04:50 04:45 WBC 8.7 RBC 2.08 L Hgb 6.5 L* D 10.3 L D Hct 19.3 L* MCV 92.5 MCH 31.1 MCHC 33.6 RDW 17.6 H Plt Count 382 MPV 6.6 L Prelim Diff (Auto) Slide review pending Neut % (Auto) 74.4 H Lymph % (Auto) 13.9 [place] % (Auto) 11.4 H Eos % (Auto) 0.1 Baso % (Auto) 0.2 Neut # (Auto) 6.5 Lymph # (Auto) 1.2 [place] # (Auto) 1.0 H Eos # (Auto) 0.0 Baso # (Auto) 0.0 WBC Differential Diff Scan Auto diff confirmed Differential Comment Platelet Estimate Normal Platelet Morphology Normal Basophilic Stippling Faint H Sodium Potassium Chloride Carbon Dioxide Anion Gap BUN Creatinine Estimated GFR Random Glucose Calcium Phosphorus Albumin MTS Gel Crossmatch - Impressions ITS Impressions Abdomen/Pelvis CT 04/13/18 13:34 CONCLUSION: 1. Left psoas enlargement characteristic of a muscular hematoma 2. Large mixed density fluid collection anterior to a recently placed left hip prosthesis. Hematoma versus abscess should be considered. Developing dystrophic calcification suggests that this may be a chronic process. 3. New small left pleural effusion. 4. Uncomplicated diverticulosis 5. 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 Discharge Plan - Discharge Disposition Patient Disposition: 01 Discharge Home - Discharge Condition Condition: Stable - Discharge Order Discharge Orders: Discharge Order (Routine); Ordered 04/15/18 Ordered By: Jaylan Philip - Discharge Details Anticipated Discharge Date: 04/15/18 Discharge Comment: Patient is to follow-up with orthopedic surgeon, neurologist within the next week - Physicians Team Primary Care Provider: Norman Villareal Attending Provider: Jaylan hPilip Other Providers: Shawn Drake MD ; Surgeons,[facility]
--- NOTE | 2018-04-15 10:24 | P.PNGS ---
Subjective Patient reports: feels better (hh improved, tolerating diet) Physical Exam Vital signs: Vital Signs 04/14/18 10:51 04/14/18 11:00 04/14/18 12:00 Temperature 98.7 F 98.8 F Pulse Rate 82 68 74 Respiratory Rate 16 18 Blood Pressure 167/80 H 161/72 H Pulse Oximetry 96 04/14/18 13:00 04/14/18 14:00 04/14/18 15:00 Temperature Pulse Rate 86 74 68 Respiratory Rate Blood Pressure Pulse Oximetry 04/14/18 16:00 04/14/18 17:00 04/14/18 18:00 Temperature 98.7 F Pulse Rate 82 78 77 Respiratory Rate 18 Blood Pressure 147/70 H Pulse Oximetry 98 04/14/18 19:00 04/14/18 20:00 04/14/18 21:00 Temperature 99.6 F Pulse Rate 86 89 75 Respiratory Rate 18 Blood Pressure 178/87 H Pulse Oximetry 96 04/14/18 22:00 04/14/18 23:00 04/14/18 23:30 Temperature 97.4 F L Pulse Rate 71 69 69 Respiratory Rate 16 Blood Pressure 157/78 H Pulse Oximetry 93 L 04/15/18 00:00 04/15/18 01:00 04/15/18 02:00 Temperature Pulse Rate 64 68 64 Respiratory Rate Blood Pressure Pulse Oximetry 04/15/18 03:00 04/15/18 04:00 04/15/18 04:16 Temperature 98.7 F Pulse Rate 70 72 Respiratory Rate 16 Blood Pressure 184/80 H 124/70 Pulse Oximetry 94 L 04/15/18 05:00 04/15/18 06:00 04/15/18 06:17 Temperature Pulse Rate 63 73 Respiratory Rate Blood Pressure 163/87 H Pulse Oximetry Intake & Output 04/14/18 04/15/18 04/15/18 18:59 06:59 18:59 Intake Total 1060 / 1060 240 / 240 Output Total 900 / 900 600 / 600 Balance 160 / 160 -360 / -360 Weight 57.6 kg Intake: Oral 660 / 660 240 / 240 Intake (Blood Product) Amt 400 / 400 Rbc As-3 Leukoreduced Unit 0 / 0 [id number] Rbc As-3 Leukoreduced Unit 400 / 400 [id number] Output: Urine 900 / 900 600 / 600 Other: Date of Last Bowel Movement 04/14/18 04/14/18 - Constitutional no acute distress - Routine Respiratory Exam Present: CTA bilaterally - Routine Cardiovascular Exam Present: S1, S2 - Routine Abdominal Exam Present: soft - Routine Extremities Exam Present: tenderness (left hip, hematoma soft, mild ttp) Assessment and Plan - Plan psoas hematoma inr better, hh responded to transfusion PLAN continue to monitor non operative mgnt hematoma soft, non expanding - Attending Attestation The exam, history, and the medical decision-making described in the above note were completed with the assistance of the mid-level provider. I reviewed and agree with the findings presented. I attest that I had a [id number] encounter with the patient on the same day, and personally performed and documented my assessment and findings in the medical record.
[2018-04-15 10:39] VITALS: RESP 18
[2018-04-15 12:34] LABS: INR 1.2 Ratio; Prothrombin Time 11.9 sec (9.8-11.6)
[2018-04-15 13:01] VITALS: BP 140/76; TEMP 98.2; O2SAT 94
[2018-04-15 14:05] VITALS: PULSE 70
== END 2018-04-15 15:22 | disposition home or self-care (01) ==
LOC: PHED 12:20 → PHEDA 15:42 → HCIS 22:33
PROVIDERS: ADMIT Internal Medicine; ATTEND Internal Medicine